=== PATIENT | female | born 1970 | race Native Hawaiian/Other Pacific Islander ===

== ENCOUNTER 2020-11-08 14:15 | Outpatient (CLI) | payer OTHER | END 2020-11-08 19:20 | disposition home or self-care (01) | LOC: RAD 14:15 | PROVIDERS: ATTEND Nurse Practitioner Primary Care | DX: M25.551 Pain in right hip (principal); M25.552 Pain in left hip; R22.43 Localized swelling, mass and lump, lower limb, bilateral ==

== ENCOUNTER 2021-11-29 18:09 | Outpatient (CLI) | payer BC | END 2021-11-29 19:26 | disposition home or self-care (01) | LOC: RAD 18:09 | PROVIDERS: ATTEND Nurse Practitioner Primary Care | DX: M25.572 Pain in left ankle and joints of left foot (principal) ==